=== PATIENT | male | born 1950 | race Caucasian/White ===

== ENCOUNTER 2021-10-06 05:50 | Observation (INO) ==
--- NOTE | 2021-09-18 16:15 | PAT Medication Instructions ---
Medication Instructions Date of Service September 18, 2021 Home Medications aspirin 81 ea PO QAM hydrochlorothiazide 25 mg tablet 25 mg PO QAM lorazepam 0.5 mg tablet 0.5 mg PO DAILY PRN olmesartan 40 mg tablet (Benicar) 40 mg PO QAM ezetimibe 10 mg tablet (Zetia) 10 mg PO QAM ASK your prescriber and surgeon aspirin 81 ea PO QAM DO NOT take the morning of surgery hydrochlorothiazide 25 mg tablet 25 mg PO QAM olmesartan 40 mg tablet (Benicar) 40 mg PO QAM Take morning of surgery With a small sip of water, OTHERWISE NOTHING TO EAT OR DRINK AFTER MIDNIGHT: lorazepam 0.5 mg tablet 0.5 mg PO DAILY PRN (if needed) ezetimibe 10 mg tablet (Zetia) 10 mg PO QAM Other Notes If you have any questions please call us at [phone] or [phone] or [phone] or [phone]
--- NOTE | 2021-09-22 11:52 | Anesthesiology Consultation ---
Date of Service September 22, 2021 Assessment & Plan (1) Encounter for pre-operative examination: - check BSG am DOS. - COVID screening: Per assessment on 09/22/2021: Travel screen negative, no known COVID-19 positive contacts or current COVID-19 related symptoms in past 2 weeks. Patient vaccinated. Surgeon arranging preop COVID testing, scheduled 10/02/2021. Awaiting results. Chart Review Chart Review: Acceptable Risk for Surgery and Patient seen in Pre Admission Testing Teaching & Discussion Pre-Anesthesia Teaching/Discussion Notes: Instructed NPO after midnight before surgery, except medications with 15 cc of water. Medication instructions provided according to the PAT guidelines. History Surgery Operation Date: 10/06/21 07:30 Proposed Procedures p Robotic Laparoscopic Assisted Radical Retropubic Prostatectomy, Possible Open, Possible Pelvic Lymph Node Dissection, Possible Suprapubic Tube Placement - Agusto Avalos MD Height/Weight Height: 5 ft 8 in Weight: 85.8 kg Allergies Allergy/AdvReac Type Severity Reaction Status Date / Time ibuprofen Allergy Intermediate RASH Verified 09/18/21 10:23 Medications Home Medications Medication Instructions Recorded Confirmed Last Taken aspirin 81 ea PO QAM 08/19/21 09/18/21 Unknown hydrochlorothiazide 25 mg tablet 25 mg PO QAM 08/19/21 09/18/21 Unknown lorazepam 0.5 mg tablet 0.5 mg PO DAILY PRN 08/19/21 09/18/21 Unknown olmesartan 40 mg tablet (Benicar) 40 mg PO QAM 08/19/21 09/18/21 Unknown ezetimibe 10 mg tablet (Zetia) 10 mg PO QAM 09/18/21 09/18/21 Unknown Past Medical History Medical History (Updated 09/22/21 @ 12:26 by Rosibel Perdomo PA-C) Anxiety HLD (hyperlipidemia) Hypertension controlled, stable per pt Osteoarthritis Prediabetes per PCP records Prostate cancer dx 06/2021 Patient denies h/o stroke, seizures, heart attack, heart failure, DM, blood clots or blood transfusions. Exercise / Class Metabolic Activity II 4-5 Yardwork/Stairs/Walk up hill (denies CP or SOB with 1 FOS) Past Family History Family History Other Diabetes Hypertension Past Surgical History Surgical History (Updated 09/22/21 @ 12:28 by Rosibel Perdomo PA-C) Appendicolith removed History of appendectomy History of colonoscopy History of cystoscopy History of esophagogastroduodenoscopy (EGD) History of prostate biopsy History of removal of ureteral stent History of right knee surgery meniscectomy History of ureter stent Past Anesthesia History No Hx of Anesthesia Complications and No Family Hx of Anesthesia Complications History of PONV History of PONV (with spinal) and Hx of Motion Sickness Social History Smoking Status: Never smoker Do You Dip or Chew Tobacco: No Hx Alcohol Use: Yes Alcohol type: beer alcohol intake frequency: holidays/special occasions only (twice/month) Hx Substance Use: No substance use type: does not use Review of Systems Snoring, denies witnessed apneas or sleep studies. Patient denies chest pain, shortness of breath, dyspnea on exertion, reflux, fever, chills, cough, wheezing, or palpitations. Physical Exam Vital Signs Vitals BP 124/81 P 57 TEMP 97.7 SP02 95% on RA RESP 17 Physical Full cervical extension range of motion without pain Full TMJ range of motion TMD 3.5 finger breaths Mallampati Score 2 Dentition: intact, several missing teeth-upper front, chipped teeth lower teeth bilat with several metal inserts per pt, several caps/crowns throughout, bridge right upper back; denies loose teeth Lungs: normal respiratory effort. Clear throughout to auscultation, no adventitious breath sounds Cardiac: regular rate and rhythm, no murmurs noted Carotid arteries: negative bruit bilat Extremities: no distal extremity edema Lab Results Anesthesia Preop Results Results Anesthesia Widget: WBC 6.06 K/uL (4.8-10.8) 09/22/21 Hgb 15.3 g/dL (14.0-18.0) 09/22/21 Hct 45.6 % (42-52) 09/22/21 Plt 231 K/uL (130-400) 09/22/21 Na 138 mmol/L (136-145) 09/22/21 K 3.9 mmol/L (3.5-5.1) 09/22/21 Cl 103 mmol/L (98-107) 09/22/21 CO2 27 mmol/L (21-32) 09/22/21 BUN 20 mg/dl (6-23) 09/22/21 Creat 1.05 mg/dl (0.6-1.4) 09/22/21 Glucose Level 88 mg/dl (70-99(Fasting)) 09/22/21 PT 10.1 Seconds (9.0-12.0) 09/22/21 PTT 28.0 Seconds (21.0-31.0) 09/22/21 INR 1.0 (0.9-1.1) 09/22/21 Urine Color Yellow 09/22/21 Urine Appearance Clear (Clear) 09/22/21 Urine pH 5.5 (4.5-7.5) 09/22/21 Urine Specific [place] 1.012 (1.000-1.030) 09/22/21 Urine Protein Negative (Negative) 09/22/21 Urine Glucose (UA) Negative (Negative) 09/22/21 Urine Ketones Negative (Negative) 09/22/21 Urine Blood Negative (Negative) 09/22/21 Urine Nitrite Negative (Negative) 09/22/21 Urine Bilirubin Negative (Negative) 09/22/21 Urine Urobilinogen Negative (Negative) 09/22/21 Urine Leukocyte Esterase Negative (Negative) 09/22/21 Blood Type O Positive 09/22/21 Antibody Screen NEGATIVE 09/22/21 Testing Electrocardiogram Date: 09/22/21 Sinus bradycardia, rate 58 bpm Chest X-Ray Date: 09/22/21 FINDINGS: Frontal and lateral radiographs of the chest demonstrate the cardiomediastinal silhouette to be within normal limits. There is asymmetric elevation of left hemidiaphragm particularly posteriorly. The lungs are clear of alveolar opacities. There is no evidence for effusion bilaterally. There is no evidence for vascular congestion. There is no acute osseous pathology. IMPRESSION: 1. No acute cardiopulmonary disease.
[2021-10-06] MEDS ORDERED: LR 15ML/HR IV SCH (06:00)
[2021-10-06] MEDS ORDERED: ROCURONIUM BROMIDE 10 MG/ML 5 ML VIAL IV ONE ×3 (06:49→09:28)
[2021-10-06] MEDS ORDERED: fentaNYL citrate 100 MCG/2 ML VIAL ONE (06:49)
[2021-10-06] MEDS ORDERED: MIDAZOLAM HCL 1 MG/ML 2ML VIAL ONE (06:49)
[2021-10-06] MEDS ORDERED: LIDOCAINE 2% 2 ML VIAL/AMP(20MG/ML) INFIL ONE (06:49)
[2021-10-06] MEDS ORDERED: PROPOFOL IV EMULSION 10 MG/ML 20 ML VIAL IV ONE (06:49)
[2021-10-06] MEDS ORDERED: HEPARIN SOD 5,000 UNIT/0.5 ML VIAL ONE (06:58)
[2021-10-06] MEDS ORDERED: BUPIVACAINE 0.5 % 5 MG/1 ML MPF 30ML VIAL ONE (07:02)
--- NOTE | 2021-10-06 07:25 | History & Physical Report ---
Date of Service October 06, 2021 Assessment & Plan (1) Prostate cancer: Plan: Plan for prostatectomy today - risks, benefits, and expectations reviewed History of Present Illness Primary Care Provider: Shannan Pak PA-C Recently diagnosed prostate cancer here for prostatectomy Allergies Allergy/AdvReac Type Severity Reaction Status Date / Time ibuprofen Allergy Intermediate RASH Verified 10/06/21 06:17 Home Medications Medication Instructions Recorded Confirmed Type aspirin 81 ea PO QAM 08/19/21 10/06/21 History hydrochlorothiazide 25 mg tablet 25 mg PO QAM 08/19/21 10/06/21 History lorazepam 0.5 mg tablet 0.5 mg PO DAILY PRN 08/19/21 10/06/21 History olmesartan 40 mg tablet (Benicar) 40 mg PO QAM 08/19/21 10/06/21 History ezetimibe 10 mg tablet (Zetia) 10 mg PO QAM 09/18/21 10/06/21 History Past Med/Surg History Medical History Anxiety History of umbilical hernia HLD (hyperlipidemia) Hypertension controlled, stable per pt Osteoarthritis Prediabetes per PCP records Prostate cancer dx 06/2021 Surgical History Appendicolith removed History of appendectomy History of colonoscopy History of cystoscopy History of esophagogastroduodenoscopy (EGD) History of prostate biopsy History of removal of ureteral stent History of right knee surgery meniscectomy History of ureter stent Family History Other Diabetes Hypertension Social History Smoking Status: Never smoker Second Hand Exposure: No; Do You Dip or Chew Tobacco: No; Hx Alcohol Use: Yes Alcohol type: beer Alcohol Intake Frequency: Monthly or Less Hx Substance Use: No Preferred Language: Gu[place]ian Communication Ability: Effective Visual Impairment: No Limitations Lift Slab Operator Required: No Beliefs That Will Affect Care: None Current Living Situation: Spouse current occupational status: retired Feels Safe at Home: Yes Safety Concerns: Feels Safe At This Time caffeine: Yes Physical Activity Frequency: 5-6 Times per Week Assistive Devices: Contacts Physical Exam Constitutional: well developed and well nourished Neck: neck nontender Respiratory: normal respiratory effort; no respiratory distress and does not use accessory muscles Cardiovascular: Rate/Rhythm: regular rate Vessels: radial pulses present Extremities: no edema Gastrointestinal (Abdomen): Inspection/Auscultation: abdomen normal to ins pection Percussion/Palpation: abdomen soft; abdomen nontender and no guarding Musculoskeletal: Head/Neck/Chest: normocephalic and head atraumatic Extremities: extremities normal to inspection Skin: no rashes and no lesions Trauma: no evidence of skin trauma Neurologic: awake; not obtunded Speech / Cognition: normal speech Motor/Sensory: no tremor Psychiatric: Orientation: alert and oriented x 3 Genitourinary: no CVA tenderness Lymphatic: no lymphadenopathy Results & Data ([facility]) Vital Signs (Past 12 Hours) Vital Signs Temp Pulse Resp BP Pulse Ox 10/06/21 06:27 36.7 C 70 18 134/85 95
[2021-10-06] MEDS ORDERED: BELLADONNA/OPIUM SUPP 60 MG SUPP PR ONE ×2 (07:50→08:54)
[2021-10-06] MEDS ORDERED: HEPARIN SOD (PORCINE) 5,000 UNITS/ML VIAL SC ONE (08:00)
[2021-10-06] MEDS ORDERED: ePHEDrine sulfate 50 MG/ML AMP IV PRN (08:14)
[2021-10-06] MEDS ORDERED: ATROPINE SULFATE 0.1 MG/ML 10ML SYR IV PRN (08:14)
[2021-10-06] MEDS ORDERED: ONDANSETRON INJ 2 MG/ML 2 ML VIAL IV PRN ×2 (08:14→12:37)
[2021-10-06] MEDS ORDERED: HYDROmorphone INJ 2 MG/ML SYR/VIAL ONE (08:17)
[2021-10-06] MEDS ORDERED: KETAMINE 50 MG/5 ML SYRINGE ONE (08:28)
[2021-10-06] MEDS ORDERED: GLYCOPYRROLATE 0.2 MG/ML VIAL ONE (09:58)
[2021-10-06] MEDS ORDERED: NEOSTIGMINE METHYLSULFATE 1 MG/ML 10ML VIAL ONE (09:58)
[2021-10-06] MEDS ORDERED: DEXAMETHASONE SOD INJ 4 MG/ML VIAL ONE (09:59)
[2021-10-06] MEDS ORDERED: ONDANSETRON INJ 2 MG/ML 2 ML VIAL ONE (09:59)
--- NOTE | 2021-10-06 11:21 | Operative Report ---
PG Post Operative Report Pre & Post Diagnosis Operation Date: 10/06/21 07:30 Pre-Op Diagnosis: Prostate Cancer Post-Op Diagnosis: Prostate Cancer I identified the patient and participated in the time-out.: Yes Procedure Operation Date: 10/06/21 07:30 Actual Procedures p Robotic Laparoscopic Assisted Radical Retropubic Prostatectomy and Pelvic Lymph Node Dissection(Not Applicable) - Agusto Avalos MD Surgeon Kristopher Avalos MD Engineer Second Assistant Haven Solorio Estimated Blood Loss 100 Findings Consistent with Post-Op Diagnosis Specimens 1. Periprostatic fat 2. Left pelvic lymph nodes 3. Right pelvic lymph nodes 4. Prostate and seminal vesicles Description of Procedure The patient was identified in the preoperative holding area, appropriate informed consents were reviewed and completed, and he was transported to the operating suite. Subcutaneous heparin was administered in the pre-operative holding area. Upon arrival in the operating suite, he received appropriate antibiotics and general anesthesia. He was positioned in dorsal lithotomy, a B&O suppository was inserted after digital rectal exam, and he was prepped and draped in standard fashion. A Hoffman catheter was inserted in the sterile field. A Veress needle was passed per umbilicus with uniform insufflation of the abdomen to 15mmHg. He was placed in steep Trendelenburg position. A periumbilical incision was then made to accommodate a 12mm Visiport with 10mm 0degree laparoscope. Inspection of the abdomen was carried out, and there was no evidence of traumatic entry or injury secondary to the Veress needle. He did, however have significant adhesions, particular in the right lower quadrant as well as the pouch of Buddy. I thought that some of the adhesions of the right lower quadrant would interfere with port placement on that side of the abdomen the patient was identified in the preoperative holding area, appropriate informed consents were reviewed and completed and the patient was transferred to the operative suite. Upon arrival, appropriate antibiotics and anesthesia were administered and the patient was placed in dorsal lithotomy position and prepped and draped in sterile fashion. I placed the left-sided ports and then utilized these ports to assist with laparoscopic lysis of adhesions. In total approximately 25 minutes of lysis of adhesions was required to entirely free the abdominal wall and proceed with the case. After confirming a clear anterior abdominal wall, the remainder of the ports were subsequently placed in standard robotic prostatectomy fashion without incident. To begin the robotic portion of the case, I completed the lysis of adhesions through the pouch of Buddy and mobilized the lateral aspect of the sigmoid colon. This allowed full visualization to the depth of the pouch of Buddy. I then made an incision in the pouch of Buddy, overlying the seminal vesicles. Both SVs as well as the ampullae of the vasa were entirely dissected, with the vasa transected 3cm from the prostate. The medial umbilical ligaments were then controlled with bipolar electrocautery just inferior to the umbilicus. Following cauterization, they were divided utilizing monopolar cautery. A peritoneal incision was carried from this location to the medial aspect of the internal inguinal rings bilaterally with care to avoid opening through the ring. This incision was concluded when the vas deferens was reached. Dissection of the bladder and prostate off of the posterior aspect of the pubic arch was completed allowing full visualization of the prostate. The fat overlying the prostate was removed en bloc and passed off the table as a specimen labeled "periprostatic fat". The endopelvic fascia was cleared during this portion of the procedure, and subsequently opened - first on the right and then the left. The incision through the endopelvic fascia began near the prostate-bladder junction and was carried to the apex with extreme care to preserve all lateral levator musculature as well as the periurethral musculature and sphincter complex. I additionally preserved the puboprostatic ligaments. I then controlled the DVC with a 3-0 V-lock suture in overlapping/figure of 8 fashion. The lymph node dissection was then conducted. External iliac vessels were identified on the pelvic side wall. The packet of fat and lymphatic tissue that resides just under the iliac vein was elevated and off of the vein with a split and roll technique. The packet was dissected laterally to the circumflex vein and distally to the obturator nerve which was preserved. The proximal aspect of the packet was carried towards the bifurcation of the iliac vessels. A combination of monopolar and bipolar cautery were used to assist with control. After completing the dissection on both sides, the packets were collected and passed off of the table as specimens labeled "pelvic lymph nodes". My attention then returned to the prostate, with identification of the bladder neck aided by gentle traction on the Hoffman catheter and lateral to medial pressure at the presumed level of the bladder neck with the robotic instruments. An anterior cystotomy was made, the Hoffman balloon deflated and the catheter guided through the incision to allow anterior retraction. I attempted to preserve maximal bladder neck musculature as I circumferentially dissected around the bladder neck. After incision through the posterior aspect of the mucosa, the dissection was carried through detrusor muscle until the bilateral ampullae of the vasa were identified. The previously dissected vasa and SVs were brought through the incision and used to elevated the prostate anteriorly. A posterior plane behind the prostate was then developed - splitting Denonvilliers's fascia. This dissection was carried as far as possible towards the apex as well as far as possible laterally. An incision in the lateral prostatic fascia was then made bilaterally to facilitate control of the vascular pedicles and preservation of the nerve bundles. Vasculature running along the posterior/lateral aspect of the prostate was preserved as well as the tissue containing the nerves. The pedicles were then controlled with a series of Weck clips. The apical attachments of the prostate were remaining at that stage. The DVC was divided after control with bipolar cautery over the prostate. Continuous inspection from anterior and lateral views allowed me to closely follow the apical contour of the prostate and maximally preserve urethral length and tissue. The prostate was entirely freed at that point, and collected in an EndoCatch bag before being moved out of the field of vision. Hemostasis was confirmed and anastomosis of the bladder and urethra was completed utilizing a double armed V- Lock stitch. A new Hoffman catheter was inserted and the anastomosis tested with irrigation. There was no evidence of leak. A isaac style stitch was placed bilaterally to functionally marsupialize the area of the lymph node dissection. The robot was undocked, the specimen extracted through expansion of the juan-um bilical camera port. The fascia was closed with a series of 0-PDS figure of 8 stitches. The right geological survey field assistant port was closed in two layers - with a figure of 8 0-Vicryl to reapproximate the fascia followed by 4-0 Monocryl to close the skin. Monocryl was used to close all other skin incisions. All wounds were dressed with Dermabond. The case was concluded and the patient taken to the PACU in stable condition. Haven Solorio assisted from incision to closure. I attest to the content of the Intraoperative Record and any orders documented therein. Any exceptions are noted below.
[2021-10-06 11:40] LABS: Basophils # (auto) 0.02 K/uL (0-0.2); Basophils % (auto) 0.2 %; Eosinophils # (auto) 0.04 K/uL (0-0.5); Eosinophils % (auto) 0.5 %; Hematocrit (blood only) 45.3 % (42-52); Hemoglobin 15.1 g/dL (14.0-18.0); Immature Granulocytes # (auto) 0.01 K/uL (0.00-0.02); Immature Granulocytes % (auto) 0.1 %; Lymphocytes # (auto) 0.76 K/uL (1.2-3.4); Lymphocytes % (auto) 8.9 %; Mean Corpuscular Hemoglobin 31.1 pg (25-34); Mean Corpuscular Volume 93.2 fL (80-100); Monocytes # (auto) 0.15 K/uL (0.11-0.59); Monocytes % (auto) 1.8 %; Neutrophils # (auto) 7.55 K/uL (1.4-6.5); Neutrophils % (auto) 88.5 %; Platelet Count 197 K/uL (130-400); RDW Coefficient of Variation 13.5 % (11.5-14.5); Red Blood Count 4.86 M/uL (4.7-6.1); White Blood Count 8.53 K/uL (4.8-10.8)
[2021-10-06 11:59] LABS: BUN Creatinine Ratio 18.9 (10-20); Calcium 9.2 mg/dl (8.5-10.1); Creatinine Clr Calc Pharmacy 52.9 ml/min; Est GFR (African American) 61.6 ml/min; Est GFR (Non-African American) 53.1 ml/min; Potassium 4.7 mmol/L (3.5-5.1)
[2021-10-06 12:00] LABS: Mean Corpuscular Hgb Conc 33.3 g/dL (32-36)
[2021-10-06] MEDS: fentaNYL citrate 100 MCG/2 ML VIAL IV PRN ×2 (12:17→12:22)
--- NOTE | 2021-10-06 12:32 | Anesthesiology Progress Note ---
Date of Service October 06, 2021 Anesthesia Post Procedure Vital Signs Vital Signs: Temp Pulse Pulse Resp BP Pulse Ox 10/06/21 12:20 77 14 138/83 96 10/06/21 12:05 81 14 134/91 96 10/06/21 11:55 75 14 130/81 94 10/06/21 11:45 36.9 C 77 16 129/86 93 10/06/21 11:35 76 18 129/83 94 10/06/21 11:25 94 H 16 130/87 94 10/06/21 11:15 83 13 146/89 H 95 10/06/21 11:09 36.2 C L 80 16 144/89 H 98 10/06/21 06:27 36.7 C 70 18 134/85 95 Pain Intensity Abdomen: Pain Intensity: 5 Transfer of Care Handoff Completed per policy Notes Mental Status: alert / awake / arousable and participated in evaluation Patient Amnestic to Procedure: Yes Nausea / Vomiting: adequately controlled Pain: adequately controlled Airway Patency, RR, SpO2: stable & adequate BP & HR: stable & adequate Hydration State: stable & adequate Anesthetic Complications: no major complications apparent and Pt Satisfied with anesthetic care
[2021-10-06] MEDS ORDERED: ACETAMINOPHEN 325 MG TAB PO PRN (12:37)
[2021-10-06] MEDS ORDERED: LORazepam 0.5 MG TAB PO PRN (12:37)
[2021-10-06] MEDS ORDERED: MoRPHine SULFATE 2 MG/ML CARP IV PRN (12:37)
[2021-10-06] MEDS ORDERED: oxyCODONE HCL IR 5 MG TAB (IMMEDIATE RELEASE) PO PRN (12:37)
[2021-10-06] MEDS ORDERED: FLOSEAL HEMOSTATIC MATRIX 10ML TOP ONE (13:19)
[2021-10-06] MEDS ORDERED: SURGICEL ABSORB HEMOSTAT 2IN X 14IN TOP ONE (13:19)
[2021-10-06] MEDS: LACTATED RINGER'S 1,000 ML IV SCH (14:18)
[2021-10-06] MEDS: oxyCODONE HCL IR 5 MG TAB (IMMEDIATE RELEASE) PO PRN ×2 (15:56→21:54)
[2021-10-06] MEDS: ceFAZolin 2000MG 2,000 MG/15 ML SYR IV SCH (17:05)
[2021-10-06] MEDS: MoRPHine SULFATE 4 MG/ML 1 ML CARP\\VIAL IV PRN (18:31)
[2021-10-06] MEDS: HEPARIN SOD 5,000 UNIT/0.5 ML VIAL SQ SCH (21:55)
[2021-10-07] MEDS: LACTATED RINGER'S 1,000 ML IV SCH ×2 (00:09→10:18)
[2021-10-07] MEDS: ceFAZolin 2000MG 2,000 MG/15 ML SYR IV SCH (00:30)
[2021-10-07] MEDS: MoRPHine SULFATE 4 MG/ML 1 ML CARP\\VIAL IV PRN (02:48)
[2021-10-07 08:20] LABS: Basophils # (auto) 0.01 K/uL (0-0.2); Basophils % (auto) 0.1 %; Eosinophils # (auto) 0.03 K/uL (0-0.5); Eosinophils % (auto) 0.3 %; Hemoglobin 13.5 g/dL (14.0-18.0); Immature Granulocytes # (auto) 0.01 K/uL (0.00-0.02); Immature Granulocytes % (auto) 0.1 %; Lymphocytes # (auto) 0.99 K/uL (1.2-3.4); Lymphocytes % (auto) 10.7 %; Mean Corpuscular Hemoglobin 31.1 pg (25-34); Mean Corpuscular Hgb Conc 32.9 g/dL (32-36); Mean Corpuscular Volume 94.5 fL (80-100); Mean Platelet Volume 9.2 fL (7.4-10.4); Monocytes # (auto) 0.95 K/uL (0.11-0.59); Monocytes % (auto) 10.3 %; Neutrophils # (auto) 7.26 K/uL (1.4-6.5); Neutrophils % (auto) 78.5 %; Platelet Count 193 K/uL (130-400); RDW Coefficient of Variation 13.7 % (11.5-14.5); RDW Standard Deviation 47.9 fL (36.4-46.3); Red Blood Count 4.34 M/uL (4.7-6.1); White Blood Count 9.25 K/uL (4.8-10.8)
[2021-10-07 08:55] LABS: Calcium 8.1 mg/dl (8.5-10.1); Creatinine Clr Calc Pharmacy 62.4 ml/min; Est GFR (African American) 75.1 ml/min; Est GFR (Non-African American) 64.8 ml/min; Potassium 4.1 mmol/L (3.5-5.1)
[2021-10-07] MEDS ORDERED: OLMESARTAN MEDOXOMIL 40 MG TAB PO SCH (09:00)
[2021-10-07] MEDS ORDERED: EZETIMIBE 10 MG TABLET PO SCH (09:00)
[2021-10-07] MEDS ORDERED: hydroCHLOROthiazide 25 MG TAB PO SCH (09:00)
[2021-10-07] MEDS ORDERED: ASPIRIN 81 MG ECTAB PO SCH (09:00)
--- NOTE | 2021-10-07 10:22 | Urology Progress Note ---
Date of Service October 07, 2021 Assessment & Plan (1) Prostate cancer: Plan: Doing very well Catheter draining clear urine Labs appropriate Advance diet Discharge home later today Admission and Anticipated Discharge Date Admission Date: October 06, 2021 Subjective No major issues overnight Ambulatory Pain well controlled Asking for food Recovering appropriately Physical Exam Physical Exam: Incisions appropriate Results & Data ([facility]) Vital Signs (Past 12 Hours) Vital Signs Temp Pulse Resp BP Pulse Ox 10/07/21 08:35 88 145/78 H 10/07/21 07:49 37.1 C 74 18 145/81 H 93 10/07/21 03:24 36.8 C 88 16 139/77 91 PG Care Time/CCT Total # of Minutes Spent Total Time Spent with Patient: Total time spent is greater than 50% in coordination of care (as documented) at patient's floor/unit and/or counseling patient: Coding Level of Care Code None Diagnoses Prostate cancer C61
[2021-10-07] MEDS: HEPARIN SOD 5,000 UNIT/0.5 ML VIAL SQ SCH (10:48)
--- NOTE | 2021-10-07 14:08 | Discharge Summary ---
Date of Service October 07, 2021 Admission HPI Per Admitting Provider Recently diagnosed prostate cancer here for prostatectomy Admission Exam Per Admitting Provider Constitutional: well developed and well nourished Neck: neck nontender Respiratory: normal respiratory effort; no respiratory distress and does not use accessory muscles Cardiovascular: Rate/Rhythm: regular rate Vessels: radial pulses present Extremities: no edema Gastrointestinal (Abdomen): Inspection/Auscultation: abdomen normal to inspection Percussion/Palpation: abdomen soft; abdomen nontender and no guarding Musculoskeletal: Head/Neck/Chest: normocephalic and head atraumatic Extremities: extremities normal to inspection Skin: no rashes and no lesions Trauma: no evidence of skin trauma Neurologic: awake; not obtunded Speech / Cognition: normal speech Motor/Sensory: no tremor Psychiatric: Orientation: alert and oriented x 3 Genitourinary: no CVA tenderness Lymphatic: no lymphadenopathy Principal Diagnosis Prostate Cancer Discharge Exam Constitutional well developed and well nourished; no acute distress and not ill appearing Respiratory normal respiratory effort and able to speak in complete sentences; no labored breathing and no audible wheezes Gastrointestinal (Abdomen) Inspection/Auscultation: + abdominal surgical incision (Incisions appropriate) Musculoskeletal Head/Neck/Chest: normocephalic Neurologic moves all extremities and awake Psychiatric Orientation: alert, oriented x 3 and cooperative Genitourinary Hoffman catheter draining clear yellow urine. Discharge Data Allergies Allergy/AdvReac Type Severity Reaction Status Date / Time ibuprofen Allergy Intermediate RASH Verified 10/06/21 06:17 Procedures Performed Operation Date: 10/06/21 07:30 Actual Procedures p Robotic Laparoscopic Assisted Radical Retropubic Prostatectomy and Pelvic Lymph Node Dissection(Not Applicable) - Agusto Avalos MD Hospital Course (1) Prostate cancer: 71yo M admitted s/p Robotic Laparoscopic Assisted Radical Retropubic Prostatectomy and Pelvic Lymph Node Dissection with Dr. Avalos. - No acute issues postoperatively. - Labs appropriate. - Tolerated diet. - Ambulated without issue. - Hoffman catheter intact, draining clear yellow urine. - Expected clinical course reviewed with patient, he verbalized understanding. All questions were answered. - Postoperative follow-up appointments in place. - Pt stable for discharge POD#1, home with Hoffman catheter. Total Time Total Time Spent Total Time Spent (In Minutes): 15 Discharge Plan Discharge Items Patient Disposition: Home - Self-Care Reason For Visit: Prostate Cancer Discharge Diagnosis: Prostate Cancer Activity: Per Instructions section Lifting: No more than 25 pounds Bathing Comment: Ok to shower. No tub baths or soaks. Sexual Activity: Wait until after follow-up appointment Exercise/Sports: Wait until after follow-up appointment Driving/Machine Use: Do not drive if taking prescription pain medication. Non-emergency contact: Surgeon and Urologist Call non-emergency contact if: you have any medication questions, your pain is not controlled, you have a fever, your temperature is above 101, your wound has increased redness and your wound pain has increased Follow-up/Referrals: Shannan Pak PA-C [Primary Care Provider] - Urology,Nurse [FAKE FOR SCHEDULES] - 10/12/21 9:30 am Diet: Regular Addtl Attending Provider Instructions: Please take all medications as prescribed and keep follow-ups as scheduled. Please call our office at [phone] with any questions, concerns or need to reschedule appointments for any reason. We are happy to assist you. While catheter is in place, please wash with warm soapy water and a fresh washcloth twice a day with mild bar soap (Dove, Dial, etc.). Your nursing visit appointment to have your catheter removed should already be made, if you have any question regarding this, please call our office. We have sent an antibiotic to your pharmacy of choice. Please begin antibiotic as prescribed the day BEFORE your scheduled catheter removal at [facility]. Please continue antibiotic every 12 hours until complete. It is okay to take AZO (available over the counter) as needed for a few days to relieve burning with urination. This may cause your urine or feces to turn an orangish-color. This is expected. The only exception is if you have been prescribed Pyridium (phenazopyridine), this is the same medication and should not take AZO be taken in addition to prescription version. Please do not drive, drink alcohol or operate machinery while taking prescription pain medication. We recommend continuing a stool softener (i.e. Colace) to prevent constipation/straining for at least two weeks after your procedure. Some blood is to be expected in your urine as you heal, you may even see recurrences of blood in your urine for up to 4-6 months after your procedure. Drink plenty of fluids, avoid sexual or strenuous exercise and do not lift >25 pounds until your follow-up. Call [facility] at [phone] promptly if you experience: Fever of 101F or greater Pain thats not controlled with medicine Trouble urinating or inability to urinate Dark, bloody urine for more than 12 hours Pending Studies at Discharge: Yes (Pathology) Stand-Alone Forms: My [facility], Opioid Pain Management, Smoking Cessation Medications and DC Order Prescriptions: New ciprofloxacin HCl 500 mg tablet 500 mg PO BID 3 Days Qty: 6 RF: 0 oxycodone-acetaminophen [Percocet] 5-325 mg tablet 1 tab PO Q8H PRN (Reason: pain) Qty: 7 RF: 0 docusate sodium [Colace] 100 mg capsule 100 mg PO BID Qty: 30 RF: 0 Continued hydrochlorothiazide 25 mg tablet 25 mg PO QAM RF: 0 olmesartan [Benicar] 40 mg tablet 40 mg PO QAM RF: 0 lorazepam 0.5 mg tablet 0.5 mg PO DAILY PRN (Reason: Anxiety) RF: 0 aspirin 81 ea PO QAM RF: 0 ezetimibe [Zetia] 10 mg Tablet 10 mg PO QAM RF: 0 Discharge Orders: Discharge Order (Routine); Ordered 10/07/21 Ordered By: Haven Rueda/Other Patient Handouts: Leg Bag Care Dc Admission Data Admit Date/Time: 10/06/21 11:14 Attending Provider: Agusto Avalos Admit Provider: Agusto Avalos Primary Care Provider: Shannan Pak Other Interventions: Discharge Summary Assessment (RN) Last Done: 10/07/21 11:49 Coding Level of Care Code D/C DAY MANAGEMENT <30 MINS Diagnoses Prostate cancer C61
== END 2021-10-07 15:06 | disposition home or self-care (01) | DRG 708 ==
LOC: ASU 05:50 → INTOOBSV 11:14 → PACUINP 11:14 → 3W 13:56